=== PATIENT | female | born 1945 | race Caucasian/White ===

== ENCOUNTER → 2017-10-11 | Outpatient (CLI) | payer OTHER, MEDICARE | LOC: FIMAGING 13:43 | PROVIDERS: ATTEND Family Medicine | DX: Z13.820 Encounter for screening for osteoporosis (principal); M85.89 Other specified disorders of bone density and structure, multiple sites; Z87.81 Personal history of (healed) traumatic fracture ==

== ENCOUNTER → 2017-10-23 | Outpatient (CLI) | payer OTHER, MEDICARE | LOC: BHFA 14:30 | PROVIDERS: ATTEND Internal Medicine Interventional Cardiology | DX: R06.02 Shortness of breath (principal); R06.09 Other forms of dyspnea ==